=== PATIENT | female | born 1985 | race Caucasian/White ===

== ENCOUNTER 2019-05-03 07:28 | Outpatient (CLI) | payer BC ==
--- NOTE | 2019-05-03 11:32 | MRI ---
MRI ABDOMEN WITH AND WITHOUT CONTRAST: HISTORY: R93.2, abnormal findings on imaging of liver. COMPARISON: None available. FINDINGS: No pleural effusion. No pericardial fluid. There is moderate hepatic steatosis with fat fraction of 28.1%, fat percentage of 21.4%. On the out- of-phase T1 weighted imaging sequence, there are 3 somewhat round foci of retained signal suggesting areas of fatty sparing. This includes hepatic segment 2 which measures 1.3 cm. Hepatic segment 8 me asuring up to 1.3 cm and hepatic segment 5 measuring up to 1.3 cm. There is also some focal fatty sp arring near the gallbladder fossa. Some layering sludge within the gallbladder. No intrahepatic or extrahepatic biliary dilatation. Spleen and pancreas unremarkable as well as the adrenal glands. No hydronephrosis. Background marro w signal is maintained. Adrenal glands are unremarkable. No dilated loops of bowel in the abdomen. IMPRESSION: 1. Moderate hepatic steatosis with 3 round foci of fatty sparing as described. 2. No acute inflammatory process in the abdomen or pelvis. 3. Mild gallbladder sludge. POS: [facility]
== END 2019-05-03 07:29 | disposition home or self-care (01) ==
LOC: SCSMRI 07:28
PROVIDERS: ATTEND Family Medicine
DX: R93.2 Abnormal findings on diagnostic imaging of liver and biliary tract (principal); K76.0 Fatty (change of) liver, not elsewhere classified; K82.8 Other specified diseases of gallbladder
CPT/HCPCS: 74183

== ENCOUNTER 2020-01-20 10:15 | Outpatient (CLI) | payer BC, OTHER ==
[2020-01-21 14:26] LABS: SARS-CoV-2 MS2 Positive; SARS-CoV-2 N Gene Negative; SARS-CoV-2 S Gene Negative; SARS-CoV-2 orf1ab Negative
== END 2020-01-20 10:16 | disposition home or self-care (01) ==
LOC: SCSLAB 10:15
PROVIDERS: ATTEND Obstetrics & Gynecology
DX: Z01.812 Encounter for preprocedural laboratory examination (principal); Z11.59 Encounter for screening for other viral diseases
CPT/HCPCS: 87635; U0003

== ENCOUNTER 2020-01-23 05:30 | Inpatient (IN) | payer BC, OTHER ==
[2020-01-23] MEDS ORDERED: Lidocaine 2% MPF 10 ML AMP (For Epidural Use) ONE (09:06)
[2020-01-23] MEDS ORDERED: Bupivacaine/Epinephrine 0.25% 30 ML VIAL ONE (09:06)
[2020-01-23] MEDS ORDERED: Lidocaine 1% (PF) 30 ML VIAL SC PRN (20:29)
[2020-01-23] MEDS ORDERED: Promethazine HCl 25 MG/ML VIAL IM PRN (20:29)
[2020-01-23] MEDS ORDERED: Ibuprofen 800 MG TAB PO PRN (20:29)
[2020-01-23] MEDS ORDERED: Ondansetron PF 4 MG/2 ML Vial IVP PRN (20:29)
[2020-01-23] MEDS ORDERED: Misoprostol 100 MCG TAB VAG SCH (20:29)
[2020-01-23] MEDS ORDERED: Butorphanol Tartrate 1 MG/ML VIAL SLOW IVP PRN (20:29)
[2020-01-23] MEDS ORDERED: NS w/ Oxytocin 10 units 500 ML IV SCH ×2 (20:29)
[2020-01-23] MEDS ORDERED: NS / Oxytocin 40 units/1000ml 1,000 ML IV PRN (20:29)
[2020-01-23] MEDS ORDERED: hydrALAZINE 20 MG/ML VIAL SLOW IVP PRN (20:29)
[2020-01-23 21:09] VITALS: BMI 46.7
[2020-01-23] MEDS: Lactated Ringer's 1,000 ML IV SCH (21:46)
[2020-01-23 22:20] LABS: Hemoglobin 12.2 g/dL (12.0-16.0); Mean Corpuscular HGB CONC 34.5 g/dL (32.0-36.0); Mean Corpuscular Volume 84.1 fL (78.0-98.0); Mean Platelet Volume 8.7 fL (7.4-10.4); Platelet Count 274 thou/uL (130-400); RBC Distribution Width 12.8 % (11.5-14.5); Red Blood Cell (RBC) Count 4.22 mill/uL (4.20-5.40); White Blood Cell (WBC) Count 14.4 thou/uL (4.8-10.8)
[2020-01-23 22:49] LABS: Syphilis Antibody Nonreactive (Nonreactive); Syphilis Antibody Index 0.04 S/CO (<1.00 Non-Reactive)
[2020-01-24] MEDS: Lactated Ringer's 1,000 ML IV SCH ×3 (00:15→23:00)
[2020-01-24 00:19] LABS: HBSAg Index 0.28 S/CO (0-0.99); Hep B Surf Ag Non-Reactive S/CO (NonReactive)
[2020-01-24] MEDS ORDERED: Misoprostol 100 MCG TAB VAG SCH (03:00)
[2020-01-24] MEDS ORDERED: Fentanyl 4 mcg/Bup 0.1% Cadd 100 ML ONE (08:04)
[2020-01-24] MEDS ORDERED: Ondansetron PF 4 MG/2 ML Vial IVP PRN ×2 (08:41→10:40)
[2020-01-24] MEDS ORDERED: EPHEDRINE 25 MG/5 ML SYRINGE SLOW IVP PRN ×2 (08:41→10:40)
[2020-01-24] MEDS ORDERED: diphenhydrAMINE 50 MG/ML VIAL IVP PRN ×2 (08:41→10:40)
[2020-01-24] MEDS ORDERED: Promethazine HCl 25 MG/ML VIAL IM PRN ×2 (08:41→10:40)
[2020-01-24] MEDS ORDERED: Lactated Ringer's 500 ML IV PRN ×2 (08:41→10:40)
[2020-01-24] MEDS ORDERED: Naloxone HCl 0.4 mg/ml Vial IVP PRN ×4 (08:41→10:40)
[2020-01-24] MEDS ORDERED: Communication Order-Pharmacy FS SCH ×2 (08:45→10:45)
[2020-01-24] MEDS ORDERED: Fentanyl 4 mcg/Bupivacaine 0.1% Cassette 100 ML EPIDURAL SCH ×2 (08:45→10:45)
--- NOTE | 2020-01-24 16:04 | PDOC.OPDEL ---
OB Operative/Delivery Note Delivery Dr/Surgeon: Rigoberto Pre-Delivery Diagnosis: elective induction Procedure/Post Delivery Dx: spontaneous vaginal delivery Weeks gestation: 39 Anesthesia: epidural - Findings A Sex: male - Additional Findings/Plan Repaired Obstetrical Laceration: other (periurethral) Estimated blood loss: 150ml Post delivery plan: routine recovery
--- NOTE | 2020-01-24 16:08 | PDOC.EVN ---
Event Note - Event Note Event Note: Addendum to delivery note. Called for delivery, came immediately w Dr. Mar at bedside, baby had spont delivered in the bed. Placenta and vaginal repair completed by me.
[2020-01-24] MEDS ORDERED: Lanolin Ointment 7 GM TUBE TOP PRN (18:03)
[2020-01-24] MEDS ORDERED: hydrALAZINE 20 MG/ML VIAL SLOW IVP PRN (18:03)
[2020-01-24] MEDS ORDERED: NS / Oxytocin 40 units/1000ml 1,000 ML IV SCH (18:03)
[2020-01-24] MEDS ORDERED: Benzocaine-Menthol 82.5 ML CAN TOP PRN (18:03)
[2020-01-24] MEDS ORDERED: Preparation H Ointment 28 GM TUBE PR PRN (18:03)
[2020-01-24] MEDS ORDERED: diphenhydrAMINE 25 MG CAP PO PRN (18:03)
[2020-01-24] MEDS ORDERED: Milk Of Magnesia 30 ML UDCUP PO PRN (18:03)
[2020-01-24] MEDS ORDERED: Bisacodyl 10 MG SUPP PR PRN (18:03)
[2020-01-24] MEDS: traMADol HCl 50 MG TAB PO PRN (18:45)
[2020-01-24] MEDS ORDERED: Ferrous Sulfate 325 MG TAB PO SCH (18:45)
[2020-01-24] MEDS: Docusate Calcium (SURFAK) 240 MG CAP PO SCH (23:15)
[2020-01-24] MEDS: Ibuprofen 800 MG TAB PO SCH (23:15)
[2020-01-25] MEDS: Ibuprofen 800 MG TAB PO SCH ×2 (05:57→14:13)
[2020-01-25] MEDS: Docusate Calcium (SURFAK) 240 MG CAP PO SCH (08:16)
[2020-01-25] MEDS: Ferrous Sulfate 325 MG TAB PO SCH ×2 (08:17→16:08)
--- NOTE | 2020-01-25 08:36 | PDOC.PP ---
Post Progress Note Post Day #: 1 Subjective: doing well, normal lochia, no PIH sx, formula feeding PO intake tolerated: yes Flatus: yes Ambulation: yes Vital Signs (12 hours) Temp Pulse Resp BP Pulse Ox 01/25/20 04:00 98.3 F 65 18 122/79 01/25/20 00:00 98.0 F 65 16 139/68 01/24/20 23:00 98.5 F 77 18 145/78 H 01/24/20 22:00 98.4 F 84 16 123/67 96 Weight Weight 290 lb - Physical Examination General: NAD Respiratory: non-labored breathing Abdominal: no distention Neurological: no gross focal deficits Psychiatric: A&Ox3, normal affect Result Diagrams: 01/23/20 22:00 Additional Labs: Post Labs Blood Type A POSITIVE 01/23/20 22:00 Hep Bs Antigen Non-Reactive S/CO (NonReactive) 01/23/20 22:00 (1) Vaginal delivery Code(s): O80 - ENCOUNTER FOR FULL-TERM UNCOMPLICATED DELIVERY Status: Acute - Assessment/Plan PPD1 doing well, BP normal to occ mild range, hx of CHTN off meds, no PIH sx. Likely DC later today if baby DC.
[2020-01-25] MEDS ORDERED: Adacel (T-DAP) 0.5 ML SYRINGE IM ONE (09:00)
[2020-01-25] MEDS ORDERED: Prenatal Vitamin 1 TAB PO SCH (09:00)
[2020-01-25 12:11] VITALS: BP 118/79; TEMP 98.6
[2020-01-25] MEDS: traMADol HCl 50 MG TAB PO PRN (16:57)
== END 2020-01-25 18:25 | disposition home or self-care (01) | DRG 807 ==
LOC: L&D 20:16 → 3SW 01-24 22:03
PROVIDERS: ADMIT Obstetrics & Gynecology; ATTEND Obstetrics & Gynecology
PROC: 10907ZC Drainage of Amniotic Fluid, Therapeutic from Products of Conception, Via Natural or Artificial Opening (ICD-10-PCS; 2020-01-23)
PROC: 3E0P7VZ Introduction of Hormone into Female Reproductive, Via Natural or Artificial Opening (ICD-10-PCS; 2020-01-23)
PROC: 10H07YZ Insertion of Other Device into Products of Conception, Via Natural or Artificial Opening (ICD-10-PCS; 2020-01-23)
PROC: 10E0XZZ Delivery of Products of Conception, External Approach (ICD-10-PCS; principal; 2020-01-24)
PROC: 0UQMXZZ Repair Vulva, External Approach (ICD-10-PCS; 2020-01-24)
DX: O99.284 Endocrine, nutritional and metabolic diseases complicating childbirth (principal); Z37.0 Single live birth; Z3A.39 39 weeks gestation of pregnancy; E03.9 Hypothyroidism, unspecified; O10.92 Unspecified pre-existing hypertension complicating childbirth; Z79.890 Hormone replacement therapy; Z79.82 Long term (current) use of aspirin; Z88.8 Allergy status to other drugs, medicaments and biological substances; Z91.040 Latex allergy status; O71.82 Other specified trauma to perineum and vulva
CPT/HCPCS: 36415; 51702; 85027; 86780; 86850; 86900; 86901; 87340; 87635; J0360; J0595; J2001; J2405; J2590; U0003